=== PATIENT | female | born 1990 | race Caucasian/White ===

== ENCOUNTER 2017-02-12 23:06 | Emergency (ER) | payer BC ==
[~2017-02-12] VITALS: Ht 162.6 cm; Wt 75.9 kg
--- OUTSIDE RECORDS SUMMARY | 2017-02-12 23:17 | XMS REPORT ---
Author Author [facility] Organization [facility] Address [address] [place], [place] [id number] Phone [phone] Summary purpose CCDA Sent to [facility] Chief Complaint and Reason for Visit No authorized Reason for Visit (Admitting Diagnosis) is available for this visit. Problem list No authorized problems tracked for continuity of care are available for this visit. Encounters No authorized problems tracked for encounter diagnoses are available for this visit. Medications No medications recorded for this patient visit Allergies, adverse reactions, alerts No allergy information is available for this patient. Immunizations No immunizations recorded for this patient visit Relevant diagnostic tests and/or laboratory data RESULTS Chemistry Group :49:00 Result Normal Range Units GTT 3 hr 71 65-110 mg/dl :48:00 Result Normal Range Units GTT 2hr. H 133 65-110 mg/dl Result Amended on 2016-07-13 at 16:04:44. Previous status was FR. :45:00 Result Normal Range Units GTT 1 hr. H 175 65-110 mg/dl Result Amended on 2016-07-13 at 16:04:44. Previous status was FR. :05:00 Result Normal Range Units GTT 1/2 Hr. H 137 65-110 mg/dl Result Amended on 2016-07-13 at 16:04:44. Previous status was FR. :33:00 Result Normal Range Units GTT Fasting 73 65-110 mg/dl Result Amended on 2016-07-13 at 16:04:44. Previous status was WI. History of procedures Procedure Code Code Type Description Date Performed Performing Physician 86576 CPT-4 GLUCOSE TOLERANCE TEST (GTT) 07-13-2016 BHAVANA POSEY 24160 CPT-4 GTT-ADDED SAMPLES 07-13-2016 BHAVANA POSEY 89970 CPT-4 ROUTINE VENIPUNCTURE 07-13-2016 BHAVANA POSEY 18705 CPT-4 ROUTINE VENIPUNCTURE 07-13-2016 BHAVANA POSEY Functional status No functional or cognitive status observations are available for this visit. Vital signs No authorized vital signs are available for this visit. Social history No Social History or smoking status observations were recorded for this visit. ( Unknown if ever smoked.) Treatment Plan No treatment plan text is available for this visit. Hospital discharge instructions No discharge instruction text is available for this visit.
[2017-02-13] MEDS ORDERED: AMOX500C5 PO (00:10)
[2017-02-13] MEDS ORDERED: ED- AMOXICILLIN 500 MG (POLYMOX) 6 CAPSULES/BTL PO ONE (00:15)
[2017-02-13 01:03] VITALS: BP 125/86
== END 2017-02-13 00:45 | disposition home or self-care (01) ==
LOC: ED 23:13
DX: J40 Bronchitis, not specified as acute or chronic (principal)
CPT/HCPCS: 99282; 99283